=== PATIENT | male | born 1965 | race Caucasian/White ===

== ENCOUNTER 2017-01-07 23:10 | Emergency (ER) | payer MEDICAID, OTHER ==
[2017-01-08] MEDS ORDERED: PROMETHAZINE HCL 25 MG/ML VIAL IM ONE (00:08)
[2017-01-08] MEDS ORDERED: HYDROMORPHONE HCL 2 MG/ML VIAL IM ONE (00:08)
[2017-01-08] MEDS ORDERED: CEPHALEXIN 500 MG CAPSULE PO STA (00:08)
--- NOTE | 2017-01-08 00:41 | Emergency Department Record ---
History of Present Illness - General Chief complaint: Dental Stated complaint: DENTAL PAIN Time Seen by Provider: 01/07/17 23:17 Source: Patient Mode of Arrival: Ambulatory Limitations: No limitations - History of Present Illness Initial comments: pt has a dentist appt in 3 days. his pain has gotten worse and he feels it is involving a nerve. he has pain in the r upper and lower jaw. MD complaint: Tooth pain Onset/Timin -: Days(s) Location: Tooth # Severity: Severe Severity scale (1-10): >10 Quality: Aching, Sharp Consistency: Intermittent, Getting worse Improves with: Other medication Worsens with: Eating, Medication, Swallowing Context- Dental: History of dental caries, Poor dental care Associated Symptoms: Toothache - Related Data Previous Rx's Medication Instructions Recorded Cephalexin [Keflex] 500 mg PO TID #20 cap 01/08/17 Hydrocodone/Acetaminophen [[place] 1 each PO Q6HR #10 tablet 01/08/17 5-325 Tablet] Allergies Allergy/AdvReac Type Severity Reaction Status Date / Time haloperidol [From Haldol] Allergy Intermediate BEHAVIORAL Verified 01/07/17 23: 40 CHANGES haloperidol lactate Allergy Intermediate BEHAVIORAL Verified 01/07/17 23:40 [From Haldol] CHANGES Travel Screening - Travel/Exposure Within Last 30 Days Have you traveled within the last 30 days?: No - Travel/Exposure Within Last Year Have you traveled outside the [place] in the last year?: No - Additonal Travel Details Have you been exposed to anyone with a communicable illness?: No - Travel Symptoms Symptom Screening: None Review of Systems Reviewed: No additional complaints except as noted below Constitutional: Reports: As per HPI. Denies: Chills, Fever, Malaise, Night sweats, Weakness, Weight change Eyes: Reports: As per HPI. Denies: Eye discharge, Eye pain, Photophobia, Vision change ENT: Reports: As per HPI. Denies: Congestion, Dental pain, Ear pain, Epistaxis , Hearing loss, Throat pain Respiratory: Reports: As per HPI. Denies: Cough, Dyspnea, Hemoptysis, Stridor, Wheezes Cardiovascular: Reports: As per HPI. Denies: Arrhythmia, Chest pain, Dyspnea on exertion, Edema, Murmurs, Orthopnea, Palpitations, Paroxysmal nocturnal dyspnea, Rheumatic Fever, Syncope Endocrine: Reports: As per HPI. Denies: Fatigue, Heat or cold intolerance, Polydipsia, Polyuria Gastrointestinal: Reports: As per HPI. Denies: Abdominal pain, Constipation, Diarrhea, Hematemesis, Hematochezia, Melena, Nausea, Vomiting Genitourinary: Reports: As per HPI. Denies: Dysuria, Frequency, Hematuria, Incontinence, Retention, Testicular pain, Testicular mass, Urgency Musculoskeletal: Reports: As per HPI. Denies: Arthralgia, Back pain, Gout, Joint swelling, Myalgia, Neck pain Skin: Reports: As per HPI. Denies: Bruising, Change in color, Change in hair/ nails, Lesions, Pruritus, Rash Neurological: Reports: As per HPI. Denies: Abnormal gait, Confusion, Headache, Numbness, Paresthesias, Seizure, Tingling, Tremors, Vertigo, Weakness Psychiatric: Reports: As per HPI. Denies: Anxiety, Auditory hallucinations, Depression, Homicidal thoughts, Suicidal thoughts, Visual hallucinations Hematological/Lymphatic: Reports: As per HPI. 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 negative: External canal tenderness Nasal Exam: Normal inspection. negative: Discharge, Sinus tenderness Mouth exam: Normal external inspection, Tongue normal Teeth exam: Dental caries, Dental tenderness # Throat exam: Normal inspection. negative: Tonsillar erythema, Tonsillar exudate - Neck Neck exam: Normal inspection, Full ROM. negative: Tenderness - Respiratory Respiratory exam: Normal lung sounds bilaterally. negative: Respiratory distress - Cardiovascular Cardiovascular Exam: Regular rate, Normal rhythm, Normal heart sounds - GI/Abdominal GI/Abdominal exam: Soft, Normal bowel sounds. negative: Tenderness - Rectal Rectal exam: Deferred - exam: Deferred - Extremities Extremities exam: Normal inspection, Full ROM, Normal capillary refill. negative: Tenderness - Back Back exam: Reports: Normal inspection, Full ROM. Denies: Muscle spasm, Rash noted, Tenderness - Neurological Neurological exam: Alert, CN II-XII intact, Normal gait, Oriented X3 - Psychiatric Psychiatric exam: Normal affect, Normal mood - Skin Skin exam: Dry, Intact, Normal color, Warm Disposition Disposition: Discharge Clinical Impression: Tooth ache, Hypertension Disposition: Home, Self-Care Condition: (1) Good Instructions: Toothache (ED) Additional Instructions: follow up with dentist claire. return sooner if worse. Prescriptions: Hydrocodone/Acetaminophen [[place] 5-325 Tablet] 1 each PO Q6HR #10 tablet Cephalexin [Keflex] 500 mg PO TID #20 cap Forms: Patient Portal Access Quality - Quality Measures Quality Measures: N/A - Blood Pressure Screening Blood Pressure Classification: Hypertensive Reading Systolic Measurement: 185 Diastolic Measurement: 126 Screening for High Blood Pressure: < First Hypertensive BP, F/U Documented > [ G8950] First Hypertensive Follow-up Interventions: Follow-up with rescreen GT 1 day and LT 4 weeks., Referral to alternative/primary care provider.
== END 2017-01-08 00:58 | disposition home or self-care (01) ==
LOC: ER 23:10
DX: K08.89 Other specified disorders of teeth and supporting structures (principal); I10 Essential (primary) hypertension; F17.210 Nicotine dependence, cigarettes, uncomplicated
CPT/HCPCS: 99283 ×2; 96372; J1170; J2550

== ENCOUNTER 2019-06-01 13:13 | Emergency (ER) | payer OTHER ==
[2019-06-01] MEDS ORDERED: CEFTRIAXONE SODIUM 2 GM in 0.9 % SODIUM CHLORIDE 100ML 100 ML IVPB ONE (14:52)
--- NOTE | 2019-06-01 14:56 | Emergency Department Record ---
History of Present Illness - General Chief complaint: Lower Extremity Pain Stated complaint: PAIN IN RT LEG Time Seen by Provider: 06/01/19 14:30 Source: Patient, RN notes reviewed Mode of Arrival: Ambulatory - History of Present Illness Initial comments: patient has right ankle pain and swelling and red line going up the leg to the mid thigh area. Pateint states his pain is chronic but the swelling is new but his right ankle swells on and off from a crush injury 20 years ago and surgically repaired by Dr Muñoz. patient said he is moving his ankle the way he typically moves it with his typical pain. red line looks like it originates from a furuncle on the anterior part of his lower leg mid antonio area and he bumped that area moving a stove. Onset/Timin -: Days(s) Location: Right, Ankle, Foot, Lower Leg Severity scale (1-10): 7 Improves with: Nothing Worsens with: Weight bearing - Related Data Previous Rx's Medication Instructions Recorded Cephalexin [Keflex] 500 mg PO QID #40 cap 06/01/19 Sulfamethoxazole/Trimethoprim 1 each PO BID #20 tablet 06/01/19 [Bactrim Ds Tablet] Allergies Allergy/AdvReac Type Severity Reaction Status Date / Time haloperidol [From Haldol] Allergy Intermediate BEHAVIORAL Verified 06/01/19 13:36 CHANGES haloperidol lactate Allergy Intermediate BEHAVIORAL Verified 06/01/19 13:36 [From Haldol] CHANGES Travel Screening - Travel/Exposure Within Last 30 Days Have you traveled within the last 30 days?: No - Travel/Exposure Within Last Year Have you traveled outside the [place] in the last year?: No - Additonal Travel Details Have you been exposed to anyone with a communicable illness?: No - Travel Symptoms Symptom Screening: None Review of Systems Reviewed: No additional complaints except as noted below Constitutional: Reports: As per HPI. Denies: Chills, Fever, Malaise, Night sweats, Weakness, Weight change Eyes: Reports: As per HPI. Denies: Eye discharge, Eye pain, Photophobia, Vision change ENT: Reports: As per HPI. Denies: Congestion, Dental pain, Ear pain, Epistaxis, Hearing loss, Throat pain Respiratory: Reports: As per HPI. Denies: Cough, Dyspnea, Hemoptysis, Stridor, Wheezes Cardiovascular: Reports: As per HPI. Denies: Arrhythmia, Chest pain, Dyspnea on exertion, Edema, Murmurs, Orthopnea, Palpitations, Paroxysmal nocturnal dyspnea, Rheumatic Fever, Syncope Endocrine: Reports: As per HPI. Denies: Fatigue, Heat or cold intolerance, Polydipsia, Polyuria Gastrointestinal: Reports: As per HPI. Denies: Abdominal pain, Constipation, Diarrhea, Hematemesis, Hematochezia, Melena, Nausea, Vomiting Genitourinary: Reports: As per HPI. Denies: Dysuria, Frequency, Hematuria, Incontinence, Retention, Testicular pain, Testicular mass, Urgency Musculoskeletal: Reports: As per HPI, Joint swelling (right ankle). Denies: Arthralgia, Back pain, Gout, Myalgia, Neck pain Skin: Reports: As per HPI. Denies: Bruising, Change in color, Change in hair/nails, Lesions, Pruritus, Rash Neurological: Reports: As per HPI. Denies: Abnormal gait, Confusion, Headache, Numbness, Paresthesias, Seizure, Tingling, Tremors, Vertigo, Weakness Psychiatric: Reports: As per HPI. Denies: Anxiety, Auditory hallucinations, Depression, Homicidal thoughts, Suicidal thoughts, Visual hallucinations Hematological/Lymphatic: Reports: As per HPI. 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 negative: External canal tenderness Nasal Exam: Normal inspection. negative: Discharge, Sinus tenderness Mouth exam: Normal external inspection, Tongue normal Teeth exam: Normal inspection. negative: Dental caries Throat exam: Normal inspection. negative: Tonsillar erythema, Tonsillar exudate - Neck Neck exam: Normal inspection, Full ROM. negative: Tenderness - Respiratory Respiratory exam: Normal lung sounds bilaterally. negative: Respiratory distress - Cardiovascular Cardiovascular Exam: Regular rate, Normal rhythm, Normal heart sounds - GI/Abdominal GI/Abdominal exam: Soft, Normal bowel sounds. negative: Tenderness - Rectal Rectal exam: Deferred - exam: Deferred - Extremities Extremities exam: Joint swelling, Normal capillary refill, Tenderness - Back Back exam: Reports: Normal inspection, Full ROM. Denies: Muscle spasm, Rash noted, Tenderness - Neurological Neurological exam: Alert, Normal gait, Oriented X3, Reflexes normal - Psychiatric Psychiatric exam: Normal affect, Normal mood - Skin Skin exam: Dry, Intact, Normal color, Warm Course Vital Signs 06/01/19 13:24 Temperature 98.1 F Pulse Rate 92 H Respiratory 16 Rate Blood Pressure 196/118 Pulse Ox 98 Medical Decision Making - Lab Data Result diagrams: 06/01/19 14:50 06/01/19 14:50 Disposition Clinical Impression: Furuncle of right lower limb, Lymphangitis Disposition: Home, Self-Care Condition: (1) Good Instructions: Cellulitis (ED) Additional Instructions: recheck ED tomorrow at 11 am if better need to see Dr Bonilla in 2-4 days use motrin for pain Prescriptions: Sulfamethoxazole/Trimethoprim [Bactrim Ds Tablet] 1 each PO BID #20 tablet Cephalexin [Keflex] 500 mg PO QID #40 cap Forms: Patient Portal Access Time of Disposition: 16:10 Quality - Quality Measures Quality Measures: N/A - Blood Pressure Screening Does Patient Have Any of the Following: No Blood Pressure Classification: Hypertensive Reading Systolic Measurement: 196 Diastolic Measurement: 118 Screening for High Blood Pressure: < First Hypertensive BP, F/U Documented > [G8950] First Hypertensive Follow-up Interventions: Referral to alternative/primary care provider.
[2019-06-01 15:04] LABS: ABSOLUTE NEUTROPHIL COUNT 3.55; EOS % 2.2 % (0-6); GRAN % 59.8 % (47-80); HEMATOCRIT 46.4 % (42.0-52.0); HEMOGLOBIN 15.8 gm/dl (14.0-18.0); LYMPH % 30.3 % (16-45); MEAN CELL VOLUME 93.4 fl (81-97); MEAN CORPUSCULAR HEMOGLOBIN 31.8 pg (27-33); MEAN CORPUSCULAR HGB CONC 34.1 g/dl (32-36); MEAN PLATELET VOLUME 9.7 fl (7.4-10.4); MONO % 6.7 % (0-9); PLATELET COUNT 191 K/uL (130-400); RED BLOOD COUNT 4.97 M/uL (4.40-5.70); RED CELL DISTRIBUTION WIDTH 17.2 % (11.5-14.5); WHITE BLOOD COUNT W/O DIFF 5.9 K/uL (4.2-12.2)
[2019-06-01 15:17] LABS: BLOOD UREA NITROGEN 6 mg/dL (6-20); CREATININE 0.8 mg/dL (0.7-1.2); EST GLOMERULAR FILTRATION RATE > 60 mL/min
[2019-06-01 15:20] LABS: GLUCOSE,RANDOM 90 mg/dL (74-109)
[2019-06-01 15:23] LABS: C-REACTIVE PROTEIN 0.22 mg/dL (<0.5)
--- NOTE | 2019-06-01 15:50 | RADIOLOGY REPORT ---
EXAMINATION: Right Ankle, Complete Minimum Three Views EXAM DATE: 06/01/2019 3:29 PM TECHNIQUE: AP, lateral, and oblique INDICATION: swelling and pain COMPARISON: 01/07/2010 ENCOUNTER: Initial FINDINGS: Normal bony architecture. Stable fixation hardware medial lateral malleoli. Ankle mortise intact. No acute fracture or dislocation. IMPRESSION: No acute abnormality, follow-up bone scan if symptoms persist Dictated by: Albert Negro MD on 06/01/2019 3:41 PM. .
--- NOTE | 2019-06-01 15:52 | RADIOLOGY REPORT ---
EXAMINATION: Right Foot, Minimum Three Views EXAM DATE: 06/01/2019 3:29 PM TECHNIQUE: AP, lateral, and oblique INDICATION: swelling and pain COMPARISON: 01/07/2010 ENCOUNTER: Initial FINDINGS: Diffuse osteopenia. No acute fracture or dislocation. Ankle fixation hardware. IMPRESSION: No acute abnormality, follow-up MRI if symptoms persist Dictated by: Albert Negro MD on 06/01/2019 3:49 PM. .
[2019-06-01] MEDS ORDERED: TMP/SMZ 160MG/800MG TAB PO ONE (16:05)
== END 2019-06-01 16:22 | disposition home or self-care (01) ==
LOC: ER 13:13
DX: L02.425 Furuncle of right lower limb (principal); L03.125 Acute lymphangitis of right lower limb
CPT/HCPCS: 80048; 85025; 86140; 96365; 99284

== ENCOUNTER 2019-06-02 12:54 | Emergency (ER) | payer OTHER ==
--- NOTE | 2019-06-02 13:42 | Emergency Department Record ---
History of Present Illness - General Chief Complaint: Wound, check Stated Complaint: RECHECK Time Seen by Provider: 06/02/19 13:28 Source: Patient, RN notes reviewed - History of Present Illness Initial Comments: patient returns for a recheck of his right leg and not any better and more painful and red streak moving up his leg is more painful and into his groin. Patient had xrays yesterday of the ankle and foot essentially neg with hardware in place. INjuried his lower leg about 3 weeks ago kicked a stove and also crush injury with surgical repair [address] Muñoz. Ry also alco holic Onset/Timin -: Days(s) Returns Today for: Wound recheck Symptoms Since Prior Visit: Worsening pain, Worsening swelling - Related Data Previous Rx's Medication Instructions Recorded Cephalexin [Keflex] 500 mg PO QID #40 cap 06/01/19 Sulfamethoxazole/Trimethoprim 1 each PO BID #20 tablet 06/01/19 [Bactrim Ds Tablet] Allergies Allergy/AdvReac Type Severity Reaction Status Date / Time haloperidol [From Haldol] Allergy Intermediate BEHAVIORAL Verified 06/01/19 13:36 CHANGES haloperidol lactate Allergy Intermediate BEHAVIORAL Verified 06/01/19 13:36 [From Haldol] CHANGES Travel Screening - Travel/Exposure Within Last 30 Days Have you traveled within the last 30 days?: No - Travel/Exposure Within Last Year Have you traveled outside the [place] in the last year?: No - Additonal Travel Details Have you been exposed to anyone with a communicable illness?: No - Travel Symptoms Symptom Screening: None Review of Systems Reviewed: No additional complaints except as noted below Constitutional: Reports: As per HPI. Denies: Chills, Fever, Malaise, Night sweats, Weakness, Weight change Eyes: Reports: As per HPI. Denies: Eye discharge, Eye pain, Photophobia, Vision change ENT: Reports: As per HPI. Denies: Congestion, Dental pain, Ear pain, Epistaxis, Hearing loss, Throat pain Respiratory: Reports: As per HPI. Denies: Cough, Dyspnea, Hemoptysis, Stridor, Wheezes Cardiovascular: Reports: As per HPI. Denies: Arrhythmia, Chest pain, Dyspnea on exertion, Edema, Murmurs, Orthopnea, Palpitations, Paroxysmal nocturnal dyspnea, Rheumatic Fever, Syncope Endocrine: Reports: As per HPI. Denies: Fatigue, Heat or cold intolerance, Polydipsia, Polyuria Gastrointestinal: Reports: As per HPI. Denies: Abdominal pain, Constipation, Diarrhea, Hematemesis, Hematochezia, Melena, Nausea, Vomiting Genitourinary: Reports: As per HPI. Denies: Dysuria, Frequency, Hematuria, Incontinence, Retention, Testicular pain, Testicular mass, Urgency Musculoskeletal: Reports: As per HPI, Joint swelling (right ankle swelling and pain). Denies: Arthralgia, Back pain, Gout, Myalgia, Neck pain Skin: Reports: Other (red line up the medial leg from the ankle to the groin and the line is painful). Denies: Change in color, Change in hair/nails, Lesions, Pruritus, Rash Neurological: Reports: As per HPI. Denies: Abnormal gait, Confusion, Headache, Numbness, Paresthesias, Seizure, Tingling, Tremors, Vertigo, Weakness Psychiatric: Reports: As per HPI. Denies: Anxiety, Auditory hallucinations, Depression, Homicidal thoughts, Suicidal thoughts, Visual hallucinations Hematological/Lymphatic: Reports: As per HPI. 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 negative: External canal tenderness Nasal Exam: Normal inspection. negative: Discharge, Sinus tenderness Mouth exam: Normal external inspection, Tongue normal Teeth exam: Normal inspection. negative: Dental caries Throat exam: Normal inspection. negative: Tonsillar erythema, Tonsillar exudate - Neck Neck exam: Normal inspection, Full ROM. negative: Tenderness - Respiratory Respiratory exam: Normal lung sounds bilaterally. negative: Respiratory distress - Cardiovascular Cardiovascular Exam: Regular rate, Normal rhythm, Normal heart sounds - GI/Abdominal GI/Abdominal exam: Soft, Normal bowel sounds. negative: Tenderness - Rectal Rectal exam: Deferred - exam: Deferred - Extremities Extremities exam: Normal capillary refill, Tenderness, Other (red streak from the ankle to the groin medial side of leg) - Back Back exam: Reports: Normal inspection, Full ROM. Denies: Muscle spasm, Rash noted, Tenderness - Neurological Neurological exam: Alert, Normal gait, Oriented X3, Reflexes normal - Psychiatric Psychiatric exam: Normal affect, Normal mood - Skin Skin exam: Dry, Intact, Normal color, Warm Course Vital Signs 06/02/19 13:11 Temperature 99.0 F Pulse Rate 102 H Respiratory 20 Rate Blood Pressure 173/114 Pulse Ox 96 - Reevaluation(s) Reevaluation #1: concerned he has osteomyletis of the ankle with hardware. Will contact [facility] hospitalist for admission. give one gram of vancomycin 06/02/19 13:42 Reevaluation #2: discussed case with Dr. Correa and will transfer to [facility] 06/02/19 14:32 06/02/19 14:38 06/02/19 14:43 Patient's said she will drive him. Medical Decision Making - Lab Data Result diagrams: 06/02/19 13:34 06/02/19 13:34 Disposition Clinical Impression: Lymphangitis, Furuncle of right lower limb, Failure of outpatient treatment, Alcoholism Ankle pain Qualifiers: Chronicity: acute Laterality: right Qualified Code(s): M25.571 - Pain in right ankle and joints of right foot Disposition: Acute Care Hospital Transfer Condition: (2) Stable Instructions: Wound Infection (ED) Forms: Patient Portal Access Time of Disposition: 14:44 Quality - Quality Measures Quality Measures: N/A - Blood Pressure Screening Does Patient Have Any of the Following: No Blood Pressure Classification: Hypertensive Reading Systolic Measurement: 173 Diastolic Measurement: 114 Screening for High Blood Pressure: < First Hypertensive BP, F/U Documented > [G 8950] First Hypertensive Follow-up Interventions: Referral to alternative/primary care provider.
[2019-06-02] MEDS ORDERED: VANCOMYCIN HCL 1,000 MG in 0.9 % SODIUM CHLORIDE 250ML 250 ML IVPB ONE (13:44)
[2019-06-02 13:49] LABS: ABSOLUTE NEUTROPHIL COUNT 3.44; BASO % 1.4 % (0-6); EOS % 2.1 % (0-6); GRAN % 60.1 % (47-80); HEMATOCRIT 47.9 % (42.0-52.0); HEMOGLOBIN 16.3 gm/dl (14.0-18.0); LYMPH % 29.4 % (16-45); MEAN CORPUSCULAR HEMOGLOBIN 31.7 pg (27-33); MEAN PLATELET VOLUME 9.6 fl (7.4-10.4); PLATELET COUNT 202 K/uL (130-400); RED BLOOD COUNT 5.15 M/uL (4.40-5.70); RED CELL DISTRIBUTION WIDTH 17.2 % (11.5-14.5); WHITE BLOOD COUNT W/O DIFF 5.7 K/uL (4.2-12.2)
[2019-06-02 14:01] LABS: BLOOD UREA NITROGEN 6 mg/dL (6-20); CREATININE 0.9 mg/dL (0.7-1.2); EST GLOMERULAR FILTRATION RATE > 60 mL/min
[2019-06-02 14:04] LABS: GLUCOSE,RANDOM 139 mg/dL (74-109)
[2019-06-02 14:07] LABS: C-REACTIVE PROTEIN 0.23 mg/dL (<0.5)
[2019-06-02 14:28] LABS: ERYTHROCYTE SEDIMENTATION RATE 2 mm/hr (0-20)
[2019-06-02] MEDS ORDERED: HYDROCODONE/APAP 5/325MG TABLET PO ONE (16:06)
== END 2019-06-02 16:34 | disposition short-term general hospital (02) ==
LOC: ER 12:54
DX: L03.125 Acute lymphangitis of right lower limb (principal); L02.425 Furuncle of right lower limb; M25.571 Pain in right ankle and joints of right foot; F10.20 Alcohol dependence, uncomplicated; I10 Essential (primary) hypertension; F17.210 Nicotine dependence, cigarettes, uncomplicated
CPT/HCPCS: 80048; 85025; 85651; 86140; 96365; 99285; J7050